=== PATIENT | female | born 1970 | race Hispanic/Latino ===

== ENCOUNTER → 2018-10-16 | Outpatient (CLI) | payer MEDICAID | END | disposition home or self-care (01) | LOC: SHCH 14:59 | PROVIDERS: ATTEND Internal Medicine Cardiovascular Disease | DX: R94.31 Abnormal electrocardiogram [ECG] [EKG] (principal); R07.9 Chest pain, unspecified | CPT/HCPCS: 93306 ==

== ENCOUNTER → 2020-01-21 | Outpatient (CLI) | payer MEDICAID ==
[~2020-01-21] MED LIST: IOHEXOL-350 50ML VIAL IV ONE
== END | disposition home or self-care (01) ==
LOC: RAH 14:14
PROVIDERS: ATTEND Family Medicine
DX: K11.1 Hypertrophy of salivary gland (principal); J98.11 Atelectasis; M43.22 Fusion of spine, cervical region
CPT/HCPCS: 70492; Q9967